=== PATIENT | female | born 1965 | race Caucasian/White ===

== ENCOUNTER 2022-12-18 07:50 | Outpatient (CLI) | payer OTHER, SELFPAY ==
--- OUTSIDE RECORDS SUMMARY | 2022-12-18 07:54 | XMS_ITS | Patient Health Record ---
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 Role Phone Dayne Reynoso Unavailable [phone] Aga Granger Unavailable [phone] Ziggy Andresey Unavailable [phone] Mila Cao Unavailable [phone] Dayne Marin Unavailable [phone] Alyson Cage Unavailable [phone] CarlosBamis Unavailable [phone] Keaton Mari Unavailable Unavailable Rajiv Bob Unavailable [phone] Nicolasa Mckenna Unavailable [phone] PROBLEMS Type Condition ICD9-CM Code [id number] Code Onset Dates Condition Status W/U Status Risk SNOMED Code Notes Problem Unspecified menopausal and perimenopausa l disorder N95.9 confirmed 741078103 Problem Climacteric N95.1 confirmed 31588246 0 Problem Chronic fatigue R53.82 confirmed 64734815 Problem Mixed urge and stress incontinence N39.46 confirmed 622262203 Problem Chronic vaginitis N76.1 confirmed 09076823 Problem Hypothyroid E03.9 confirmed 06128724 Problem Urinary incontinence, unspecified type R32 confirmed 656520737 Problem Menopausal and female climacteric states N95.1 confirmed 762686611 Problem Encounter for gynecological examination (general) (routine) without abnormal findings Z01.419 confirmed [id number] 37615 Problem Adrenal gland dysfunction E27.9 confirmed 27362584 Problem Female climacteric N95.1 confirmed 234738431 Problem Female climacteric state N95.1 confirmed 055996271 Problem Subclinical hypothyroidis m E03.8 confirmed 55237429 ALLERGIES Allergen (clinical drug ingredient) Drug/Non Drug Allergy documented on EMR Reaction Allergy Type Onset Date Status Metoprolol Succinate Unknown Drug Allergy Active Latex Latex rash Non Drug Allergy Act abel ENCOUNTERS from 1965 to 2022-12-18 Encounter Location Date Provider Diagnosis [facility] [address] [place], [place] [id number] Nov, Dayne Reynoso [facility] [address] [facility] [facility] [place] [address] October, Dayne Reynoso Menopausal and female climacteric states N95.[address] [place] [address] Sep, Dayne Reynoso Subclinical hypothyroidism E03.8 and Thyroid dysfunction E07.9 [facility] [address] [place], [place] [id number] Aug, Dayne Reynoso Menopausal and female climacteric states N95.1 ; Thyroid dysfunction E07.9 and Subclinical hypothyroidism E03.8 [facility] [address] [place] [address] 16 Aug, 2022 Dayne Reynoso Routine gynecological examination Z01.419 and Menopausal and female climacteric states N95.1 [facility] [address] [place] [address] Aug, Dayne Reynoso Menopausal and female climacteric states N95.1 [facility] [address] [place] [address] 03 Aug, 2022 Dayne Reynoso Screening mammogram for breast cancer Z12.31 [facility] [address] [place] [address] 12 May, 2022 Dayne Reynoso Menopausal and female climacteric states N95.1 ; Hair loss L65.9 ; Poor sleep Z72.820 and Thyroid dysfunction E07.9 [facility] [address] [place] [address] May, Dayne Reynoso Menopausal and female climacteric states N95.1 [facility] [address] [place] [address] Apr, Dayne Reynoso Subclinical hypothyroidism E03.[address] [address] 13 Feb, 2022 Dayne Reynoso Menopausal and female climacteric states N95.1 and Dysfunction of thyroid E07.9 [facility] [address] [place] [address] Feb, Dayne Reynoso Thyroid disorder screen Z13.29 ; Disorder of thyroid E07.9 and Menopausal and female climacteric states N95.1 [facility] [address] [place], [place] [phone] Jan, Dayne Reynoso [facility] [address] [place] [address] Jan, Dayne Reynoso Thyroid disorder screen Z13.29 and Dysfunction of thyroid E07.[address] [address] Dec, Dayne Reynoso Unspecified menopausal and perimenopausal disorder N95.9 ; Climacteric N95.1 and Subclinical hypothyroidism E03.8 [facility] [address] [place] [address] Nov, Dayne Reynoso Menopausal and female climacteric states N95.1 ; Thyroid disorder screen Z13.29 and Encounter for medication review Z79.[address] [address] Nov, Dayne Reynoso [address] [address] Nov, Dayne Reynoso [facility] [address] [place] [phone] October, Dayne Reynoso [facility] [address] [place] [address] October, Dayne Reynoso Thyroid dysfunction E07.9 and Thyroid disorder screen Z13.29 [facility] [address] [place] [phone] Sep, Dayne Bushaw [facility] [address] [place] [address] Sep, Dayne Reynoso Disorder of thyroid, unspecified E07.9 [facility] [address] [place] [address] Sep, Dayne Reynoso Menopausal and female climacteric states N95.1 ; Hyperpigmentation L81.9 ; Chronic fatigue R53.82 and Subclinical hypothyroidism E03.8 [facility] [address] [place] [address] Aug, Dayne Edgardo Current use of estrogen therapy Z79.899 and Female climacteric state N95.1 [address] [place] [address] Jul, Dayne Reynoso [facility] [address] [place] [address] Jun, Dayne Reynoso Routine gynecological examination Z01.419 and Menopausal and female climacteric states N95.1 [facility] [address] [place] [address] Jun, Dayne Reynoso Climacteric N95.1 [facility] [address] [place] [address] 14 Mar, 2021 Dayne Reynoso Unspecified menopausal and perimenopausal disorder N95.9 and Climacteric N95.1 [facility] [address] [place] [address] Mar, Dayne Reynoso Female climacteric N95.1 [facility] [address] [facility] [address] [place] [address] Feb, Dayne Mrain [facility] [address] [place] [phone] Jan, Rajiv Bob [facility] [address] [place] [address] 15 Dec, 2020 Dayne Reynoso Menopausal and female climacteric states N95.1 and Female hirsutism L68.0 [facility] [address] [place] [address] Dec, Dayne Edgardo Menopausal and female climacteric states N95.1 and Medication management Z79.899 [address] [place] [id number] Dec, Dayne Reynoso [facility] [address] [place] [address] Sep, Dayne Haganjose Menopausal and female climacteric states N95.1 [facility] [address] [place] [address] Sep, Dayne Reynoso Climacteric N95.1 and Medication management Z79.899 [address] [place] [id number] Sep, Dayne Reynoso [facility] [address] [place] [address] Jun, Dayne Edgardo Menopausal and female climacteric states N95.1 ; Other fatigue R53.83 and Adrenal gland dysfunction E27.9 [facility] [address] [place] [address] May, Dayne Marin Climacteric N95.1 [address] [place] [phone] May, Dayne Marin [facility] [address] [place] [address] May, Dayne Marin Cervical discharge N89.8 [facility] [address] [place] [address] May, Dayne Marin Unspecified menopausal and perimenopausal disorder N95.9 and Chronic vaginitis N76.1 [facility] [address] [place] [address] Apr, Keaton Mari Unspecified menopausal and perimenopausal disorder N95.9 and Medication management Z79.899 [address] [facility] [address] [place] [address] Feb, Talisha Barros [address] [place] [address] Jan, Keaton Mari [facility] [address] [place] [address] Jan, Dayne Marin Medication management Z79.899 [address] [place] [phone] Jan, Dayne Marin Unspecified menopausal and perimenopausal disorder N95.9 [address] [place] [phone] Jan, Dayne Marin Unspecified menopausal and perimenopausal disorder N95.9 [place] [address] [place] [address] Jan, Keaton Mari Unspecified menopausal and perimenopausal disorder N95.9 [place] [address] [place] [address] Jan, Dayne Marin [facility] [address] [place] [address] Jan, Keaton Mari Climacteric N95.1 [place] [address] [place] [address] October, Keaton Mari Unspecified menopausal and perimenopausal disorder N95.9 [place] [address] [place] [address] October, Dayne Marin Climacteric N95.[address] [place] [address] October, Nicolasa Mckenna [address] [place] [address] Sep, Dayne Marin Chronic fatigue R53.82 [address] [place] [phone] Sep, Rajiv Bob Mixed urge and stress incontinence N39.46 ; Urinary frequency R35.0 ; Nocturia more than twice per night R35.1 and Feeling of incomplete bladder emptying R39.14 [facility] [address] [place] [phone] Sep, Dayne Marin [facility] [address] [place] [address] [place] [address] Jul, Talisha Barros [facility] [address] [place] [address] [place] [address] Jul, Dayne Marin Encounter for gynecological examination (general) (routine) without abnormal findings Z01.419 ; Chronic fatigue R53.82 ; Hair loss L65.9 ; Poor sleep Z72.820 and Urinary incontinence, unspecified type R32 [facility] [address] [place] [address] [place] [address] Jul, [place] [address] [place] [address] Jul, Dayne Marin Unspecified menopausal and perimenopausal disorder N95.9 [place] [address] [place] [address] Jul, Keaton Mari Climacteric N95.1 [place] [address] [place] [address] May, [place] [address] [place] [address] May, Talisha Barros Unspecified menopausal and perimenopausal disorder N95.9 [place] [address] [place] [address] Apr, Talisha Barros Climacteric N95.1 [place] [address] [place] [address] Mar, [place] [address] [place] [address] Jan, Dayne Marin Unspecified menopausal and perimenopausal disorder N95.9 [place] [address] [place] [address] Jan, Talisha Barros Unspecified menopausal and perimenopausal disorder N95.9 [place] [address] [place] [address] October, [place] [address] [place] [address] October, [place] [address] [place] [address] October, Talisha Papo Unspecified menopausal and perimenopausal disorder N95.9 [place] [address] [place] [address] Sep, Talisha Barros Unspecified menopausal and perimenopausal disorder N95.9 [place] [address] [place] [address] Jul, Talisha Barros Unspecified menopausal and perimenopausal disorder N95.9 [place] [address] [place] [address] Jul, Talisha Papo Unspecified menopausal and perimenopausal disorder N95.9 [place] [address] [place] [address] Jul, Talisha Barros [place] [address] [place] [address] May, Talisha Barros Unspecified menopausal and perimenopausal disorder N95.9 [place] [address] [place] [address] May, Talisha Barros Unspecified menopausal and perimenopausal disorder N95.9 [place] [address] [place] [address] Apr, Talisha Barros Climacteric N95.1 and Unspecified menopausal and perimenopausal disorder N95.9 [place] [address] [place] [address] Apr, Talisha Barros Climacteric N95.1 [place] [address] [place] [address] Mar, Talisha Barros [facility] [address] [facility] [address] [place] [address] Mar, Talisha Barros Climacteric N95.1 SOCIAL HISTORY Tobacco Use: Social History Observation Description Date Details (start date - stop date) Never Smoker Sex Assigned At : Social History Observation Description Sex Assigned At Unknown Alcohol Screen (Audit-C) Question Answer Notes Did you have a drink containing alcohol in the p ast year? No Points 0 Interpretation Negative Tobacco Use/Smoking Question Answer Notes Are you a never smoker REASON FOR REFERRAL No Information VITAL SIGNS from 1965 to 2022-12-18 Height 63 in Aug, Weight 178.8 lbs Aug, BMI 31.67 kg/m2 Aug, Blood pressure systolic 124 mm Hg Aug, Blood pressure diastolic 72 mm Hg Aug, MEDICATIONS Medication SIG (Take, Route, Frequency, Duration) Notes Start Date End Date Status Spironolactone 100 MG 2 tablets Orally Once a day for 90 days Dec, Active Vitamin D3 Maximum Strength +k2, liquid drops Active WORKFORCE ADVISOR Thyroid 60 MG 1 tablet on an empty stomach Orally Once a day for 90 days Sep, Active WORKFORCE ADVISOR Thyroid 15 MG 1 tablet on an empty stomach Orally Once a day for 90 days Sep, Active Flonase Allergy Relief 50 MCG/ACT 1 spray in each nostril Nasally Once a day for 30 day(s) 2 sprays daily Active Prometrium 200 MG 1 capsule Orally daily at bedtime for 90 days Not-Taking Ketorolac Tromethamine 10mg as needed Active Multivitamin MVT patch, changes every night Active Estrogen Pellets Act abel Rizatriptan Benzoate 5 MG 1 tablet Orally Once a day for 1 day(s) PRN Active Vitamin B12 Active Propranolol HCl Acti ve Loratadine 10 MG 1 tablet Orally Once a day for 30 day(s) Active Testosterone Pellets Active RESULTS from 1967 to 2022-12-18 Component Value Reference Range Notes ESTRADIOL Reviewed date:11/24/2022 07:48:40 Interpretation: Performing Lab:, CB, [facility] [facility], [place] GuardadoCemwWF[address] Maurilio Brand Notes/Report: ESTRADIOL 101 pg/mL FSH Reviewed date:11/24/2022 07:48:40 Interpretation: Performing Lab:, JACQUES, [facility] [address], [place] EcafLX[address] Maurilio Brand Notes/Report: FSH 4.0 mIU/mL TESTOSTERONE, TOTAL, LC/MS/M S Reviewed date:11/24/2022 07:48:40 Interpretation: Performing Lab:, Z3E, [facility]-[address] [address], [address], WddyfztzfdGI[address] Wilber Boyce MD Notes/Report: TESTOSTERONE, TOTAL, MS 197 ng/dL 2-45 ng/dL ESTRADIOL Reviewed date:09/02/2022 12:57:50 Interpretation: Performing Lab:, JACQUES, [facility] [address], [place] RbvwST[address] Maurilio Brand Notes/Report: ESTRADIOL 72 pg/mL FSH Reviewed date:09/02/2022 12:57:51 Interpretation: Performing Lab:, JACQUES, [facility] [address], [facility] CenterXvlcEL[address] Maurilio Brand Notes/Report: FSH 2.6 mIU/mL T4, FREE Reviewed date:09/02/2022 12:57:51 Interpretation: Performing Lab:, JACQUES, [facility] [address], [place] JnwbFZ[address] Maurilio Brand Notes/Report: T4, FREE 1.1 ng/dL 0.8-1.8 ng/dL TSH Reviewed date:09/02/2022 12:57:51 Interpretation: Performing Lab:, JACQUES, [facility] [address], [place] NtndHL[address] Maurilio Brand Notes/Report: TSH 0.38 mIU/L T3, FREE Reviewed date:09/02/2022 12:57:51 Interpretation: Performing Lab:, JACQUES, [facility] [address], [place] EvukFA[address] Maurilio Brand Notes/Report: T3, FREE 3.5 pg/mL 2.3-4.2 pg/mL TESTOSTERONE, TOTAL, LC/MS/M S Reviewed date:09/02/2022 12:57:51 Interpretation: Performing Lab:, Z3E, [facility]-[address] [place] [address] [address], [address], EkjggrgqhzNT[address] Wilber Boyce MD Notes/Report: TESTOSTERONE, TOTAL, MS 112 ng/dL 2-45 ng/dL ESTRADIOL Reviewed date:05/28/2022 08:57:23 Interpretation: Performing Lab:, JACQUES, [facility] [address], [place] GuardadoYgncZV[address] Maurilio Brand M.D. Notes/Report: ESTRADIOL 84 pg/mL FSH Reviewed date:05/28/2022 08:57:24 Interpretation: Performing Lab:, Justino HANNA [facility] [address], [place] GuardadoAuveGB[address] Maurilio Brand M.D. Notes/Report: FSH 4.3 mIU/mL TESTOSTERONE, TOTAL, LC/MS/M S Reviewed date:05/28/2022 08:57:24 Interpretation: Performing Lab:, Z3E, [facility]-UerXokpxs[address] [address], [address], QnvkdsaoggID[address] Wilber Boyce MD Notes/Report: TESTOSTERONE, TOTAL, MS 104 ng/dL 2-45 ng/dL ESTRADIOL Reviewed date:03/01/2022 16:32:08 Interpretation: Performing Lab:, JACQUES [facility] [address], [place] GuardadoEwiaER[address] Maurilio Brand M.D. Notes/Report: ESTRADIOL 143 pg/mL FSH Reviewed date:03/01/2022 16:32:09 Interpretation: Performing Lab:, JACQUES [facility] [address], [place] LakhaniKfdaVA[address] Maurilio Brand M.D. Notes/Report: FSH 1.1 mIU/mL T4, FREE Reviewed date:03/01/2022 16:32:09 Interpretation: Performing Lab:, JACQUES, [facility] [address], [place] LakhaniUougFA[address] Maurilio Brand M.D. Notes/Report: T4, FREE 1.2 ng/dL 0.8-1.8 ng/dL TSH Reviewed date:03/01/2022 16:32:09 Interpretation: Performing Lab:, JACQUES, [facility] [address], [facility] CenterRwngFB[address] Maurilio Brand M.D. Notes/Report: TSH 0.78 mIU/L T3, FREE Reviewed date:03/01/2022 16:32:09 Interpretation: Performing Lab:, JACQUES VidB[facility]-[place] [address], [facility] SystemKwvlEN[address] Maurilio Brand M.D. Notes/Report: T3, FREE 3.1 pg/mL 2.3-4.2 pg/mL TESTOSTERONE, TOTAL, LC/MS/M S Reviewed date:03/01/2022 16:32:09 Interpretation: Performing Lab:, Z3Milton, [facility]-X[address]Soxlqx[address] [place] [address], [address], CxqvtcgkjxWN[address] Wilber Boyce MD Notes/Report: TESTOSTERONE, TOTAL, MS 86 ng/dL 2-45 ng/dL T4, FREE Reviewed date:02/11/2022 16:30:47 Interpretation: Performing Lab:, JACQUES [facility] [address], [place] WefzRR[address] Maurilio Brand M.D. Notes/Report: T4, FREE 1.2 ng/dL 0.8-1.8 ng/dL TSH Reviewed date:02/11/2022 16:30:47 Interpretation: Performing Lab:, JACQUES [facility]-[place] [address], [place] LakhaniXowhFT[address] Maurilio Brand M.D. Notes/Report: TSH 1.18 mIU/L T3, FREE Reviewed date:02/11/2022 16:30:48 Interpretation: Performing Lab:, JACQUES [facility] [address], [place] MiqzKP[address] Maurilio Brand M.D. Notes/Report: T3, FREE 4.6 pg/mL 2.3-4.2 pg/mL IRON, TIBC AND FERRITIN PANE L Reviewed date:12/21/2021 19:41:47 Interpretation: Performing Lab:, JACQUES [facility] [address], [place] IzjxJS[address]Karely Brand M.D. Notes/Report: % SATURATION 36 % (calc) 16-45 % (calc) FERRITIN 77 ng/mL 16-232 ng/mL IRON BINDING CAPACITY 306 mcg/dL (calc) 250-450 mcg/dL (calc) IRON, TOTAL 110 mcg/dL 45-160 mcg/dL POTASSIUM Reviewed date:12/21/2021 19:41:47 Interpretation: Performing Lab:, Justino HANNA Geodruid-[address], [place] JonQdxrDH[address]Moy Brand M.D. Notes/Report: POTASSIUM 5.0 mmol/L 3.5-5.3 mmol/L ESTRADIOL Reviewed date:12/21/2021 19:41:47 Interpretation: Performing Lab:, Justino HANNA [address], [place] Brand M.D. Notes/Report: ESTRADIOL 102 pg/mL FSH Reviewed date:12/21/2021 19:41:47 Interpretation: Performing Lab:, JACQUES VidBid-[address], [place] JonOlnmSI[address]Moy Brand M.D. Notes/Report: FSH 2.6 mIU/mL T4, FREE Reviewed date:12/21/2021 19:43:39 Interpretation: Performing Lab:, JACQUES VidBidShama [address], [place] Brand M.D. Notes/Report: T4, FREE 1.1 ng/dL 0.8-1.8 ng/dL TSH Reviewed date:12/21/2021 19:43:39 Interpretation: Performing Lab:, JACQUES V[facility]-[address], [place] GuardadoJcpsZM[address]Moy Brand M.D. Notes/Report: TSH 2.64 mIU/L T3, FREE Reviewed date:12/21/2021 19:43:39 Interpretation: Performing Lab:, JACQUES Vid[facility]id-[address], [place] GuardadoZuyuHB[address]Moy Brand M.D. Notes/Report: T3, FREE 2.9 pg/mL 2.3-4.2 pg/mL TESTOSTERONE, TOTAL, LC/MS/M S Reviewed date:12/27/2021 13:55:05 Interpretation: Performing Lab:, Z3E, [facility]-DnnGtwwjk[address] [place] [address], [address], OvkowupcvjMZ[address] Wilber Boyce MD Notes/Report: TESTOSTERONE, TOTAL, MS 86 ng/dL 2-45 ng/dL T4, FREE Reviewed date:11/09/2021 15:42:19 Interpretation: Performing Lab:, JACQUES, [facility] [address], [place] LakhaniNwjdER[address] Maurilio Brand M.D. Notes/Report: T4, FREE 1.3 ng/dL 0.8-1.8 ng/dL TSH Reviewed date:11/09/2021 15:42:19 Interpretation: Performing Lab:, JACQUES VidBid-[address], [place] GuardadoLngfRI[address] Maurilio Brand M.D. Notes/Report: TSH 1.86 mIU/L T3, FREE Reviewed date:11/09/2021 15:42:19 Interpretation: Performing Lab:, JACQUES [facility] [address], [place] GuardadoRuisQI[address] Maurilio Brand M.D. Notes/Report: T3, FREE 3.1 pg/mL 2.3-4.2 pg/mL T3, FREE Reviewed date:09/28/2021 08:44:40 Interpretation: Performing Lab:, JACQUES V[facility]id-[address], [place] GuardadoUkznZH[address] Maurilio Brand M.D. Notes/Report: T3, FREE 2.5 pg/mL 2.3-4.2 pg/mL POTASSIUM Reviewed date:09/25/2021 08:05:17 Interpretation: Performing Lab:, JACQUES [facility]-[address], [place] GuardadoBpjyVX[address] Maurilio Brand M.D. Notes/Report: POTASSIUM 4.5 mmol/L 3.5-5.3 mmol/L ESTRADIOL Reviewed date:09/25/2021 08:05:17 Interpretation: Performing Lab:, JACQUES [facility]-[place] [address], [facility] SystemEtmfKH[address] Maurilio Brand M.D. Notes/Report: ESTRADIOL 143 pg/mL FSH Reviewed date:09/25/2021 08:05:17 Interpretation: Performing Lab:, JACQUES VidBid-[address], [place] VraiVF[address] Maurilio Brand M.D. Notes/Report: FSH 8.5 mIU/mL TESTOSTERONE, TOTAL, LC/MS/M S Reviewed date:09/25/2021 08:05:17 Interpretation: Performing Lab:, Z3E, [facility]-UhxGlywzx[address] [place] [address], [address], DnmfjhydloPQ[address] Wilber Boyce MD Notes/Report: TESTOSTERONE, TOTAL, MS 134 ng/dL 2-45 ng/dL ESTRADIOL Reviewed date:07/02/2021 09:11:14 Interpretation: Performing Lab:, JACQUES VidBidJose [address], [place] GuardadoGsggJF[address] Maurilio Brand M.D. Notes/Report: ESTRADIOL 126 pg/mL FSH Reviewed date:07/02/2021 09:11:14 Interpretation: Performing Lab:, Justino HANNA Geodruid-[address], [place] GuardadoEpjjOZ[address] Maurilio Brand M.D. Notes/Report: FSH 2.7 mIU/mL TESTOSTERONE, TOTAL, LC/MS/M S Reviewed date:07/02/2021 09:11:14 Interpretation: Performing Lab:, Jonathan3Milton Stupeflix-[address]jtMn[address] [place] [address], [address], JmxubhqlfqCL[address] Wilber Boyce MD Notes/Report: TESTOSTERONE, TOTAL, MS 82 ng/dL 2-45 ng/dL POTASSIUM Reviewed date:04/02/2021 14:09:55 Interpretation: Performing Lab:, JACQUES [facility]-[address], [place] LakhaniWcsvZP[address] Maurilio Brand M.D. Notes/Report: POTASSIUM 4.7 mmol/L 3.5-5.3 mmol/L ESTRADIOL Reviewed date:04/02/2021 14:09:55 Interpretation: Performing Lab:, CB, [facility]-[address], [facility] SystemJwvrFB[address] Maurilio Brand M.D. Notes/Report: ESTRADIOL 89 pg/mL FSH Reviewed date:04/02/2021 14:09:55 Interpretation: Performing Lab:, JACQUES VidBid-Adar IT [address], [facility] SystemVuslTW[address] Maurilio Brand M.D. Notes/Report: FSH 2.8 mIU/mL TESTOSTERONE, TOTAL, LC/MS/M S Reviewed date:04/02/2021 14:09:55 Interpretation: Performing Lab:, Z3E, [facility]-GxiU[address] [place] [address], [address], LhjgorqzwwJN[address] Wilber Boyce Notes/Report: TESTOSTERONE, TOTAL, MS 64 ng/dL 2-45 ng/dL POTASSIUM Reviewed date:01/01/2021 10:24:52 Interpretation: Performing Lab:, JACQUES VidBidJose [address], [place] UsyiIU[address] Maurilio Brand M.D. Notes/Report: POTASSIUM 4.6 mmol/L 3.5-5.3 mmol/L ESTRADIOL Reviewed date:01/01/2021 10:24:52 Interpretation: Performing Lab:, Justino HANNA GeodruidJose [address], [place] FvraBJ[address] Maurilio Brand M.D. Notes/Report: ESTRADIOL 113 pg/mL FSH Reviewed date:01/01/2021 10:24:52 Interpretation: Performing Lab:, JACQUES VidBidAdar IT [address], [facility] SystemIkquRF[address] Maurilio Brand M.D. Notes/Report: FSH 8.3 mIU/mL TESTOSTERONE, TOTAL, LC/MS/M S Reviewed date:01/01/2021 10:24:52 Interpretation: Performing Lab:, Z3E, [facility]-NfxKmtzwp1051 [facility] [address], [address], EakzwiifobTN[address] Wilber Boyce Notes/Report: TESTOSTERONE, TOTAL, MS 134 ng/dL 2-45 ng/dL POTASSIUM Reviewed date:10/16/2020 08:26:52 Interpretation: Performing Lab:, JACQUES AdelaVoice [address], [facility] SystemNyapHF[address] Maurilio Brand M.D. Notes/Report: POTASSIUM 4.3 mmol/L 3.5-5.3 mmol/L ESTRADIOL Reviewed date:10/16/2020 08:26:52 Interpretation: Performing Lab:, JACQUES, [facility] [address], [place] MhtkAE[address] Maurilio Brand M.D. Notes/Report: ESTRADIOL 93 pg/mL FSH Reviewed date:10/16/2020 08:26:52 Interpretation: Performing Lab:, JACQUES VidBid-[place] [address], [place] XijwXH[address] Maurilio Brand M.D. Notes/Report: FSH 14.8 mIU/mL TESTOSTERONE, TOTAL, LC/MS/M S Reviewed date:10/16/2020 08:26:52 Interpretation: Performing Lab:, Z3E, [facility] Online[facility]-RivTrxkqt[address] [address], [address], JqktugkuanWY[address] Wilber Boyce Notes/Report: TESTOSTERONE, TOTAL, MS 76 ng/dL 2-45 ng/dL ESTRADIOL Reviewed date:06/28/2020 12:01:18 Interpretation: Performing Lab:, JACQUES VidBid-Adar IT [address], [place] WfrzUT[address] Maurilio Brand M.D. Notes/Report: ESTRADIOL 110 pg/mL FSH Reviewed date:06/28/2020 12:01:18 Interpretation: Performing Lab:, JACQUES VidBid-Adar IT [address], [facility] SystemQgcdXY[address] Maurilio Brand M.D. Notes/Report: FSH 10.9 mIU/mL TESTOSTERONE, TOTAL, LC/MS/M S Reviewed date:06/28/2020 12:01:18 Interpretation: Performing Lab:, Z3E, [facility]-JloGvmilc[address] [place] [address], [address], BpzjojszgqHW[address] Wilber Boyce Notes/Report: TESTOSTERONE, TOTAL, MS 200 ng/dL 2-45 ng/dL BV/VAGINITIS PANEL DNA PROBE Reviewed date:05/30/2020 10:27:27 Interpretation:Normal Performing Lab:, [place], [facility]-Ikrxzuzebw[address] [facility] [address], OcstuimpguBE[address] Maurilio Brand Notes/Report: MARIA ANTONIA: NOT DETECTED NOT DETECTED GARDNERELLA: NOT DETECTED NOT DETECTED TRICHOMONAS: NOT DETECTED NOT DETECTED POTASSIUM Reviewed date:05/23/2020 09:09:55 Interpretation:Normal Performing Lab:, CB, [facility] [address], [place] GuardadoRxolVK[address] Maurilio Brand M.D. Notes/Report: POTASSIUM 4.5 mmol/L 3.5-5.3 mmol/L ESTRADIOL Reviewed date:05/23/2020 09:09:55 Interpretation: Performing Lab:, JACQUES, [facility] [address], [place] GuardadoMkyvRQ[address]Karely Brand M.D. Notes/Report: ESTRADIOL 102 pg/mL FSH Reviewed date:05/23/2020 09:09:55 Interpretation: Performing Lab:, JACQUES, [facility] [address], [place] GuardadoPrfkBA[address] Maurilio Brand M.D. Notes/Report: FSH 13.4 mIU/mL TESTOSTERONE, TOTAL, LC/MS/M S Reviewed date:05/23/2020 09:09:55 Interpretation: Performing Lab:, Tk, [facility]-FtjVuuayw[address] [place] [address], [address], WuxisnlmruHV[address] Wilber Boyce Notes/Report: TESTOSTERONE, TOTAL, MS 59 ng/dL 2-45 ng/dL POTASSIUM Reviewed date:02/22/2020 09:36:22 Interpretation:Normal Performing Lab:, CB, [facility] [address], [place] GuardadoBsmgZD[address] Maurilio Brand M.D. Notes/Report: POTASSIUM 4.7 mmol/L 3.5-5.3 mmol/L ESTRADIOL Reviewed date:02/02/2020 15:00:27 Interpretation: Performing Lab:, JACQUES, [facility] [address], [place] GuardadoWrknAK[address] Maurilio Brand M.D. Notes/Report: ESTRADIOL 114 pg/mL FSH Reviewed date:02/02/2020 15:00:27 Interpretation: Performing Lab:, CB, [facility] [address], [place] OfzpOL[address] Maurilio Brand M.D. Notes/Report: FSH 15.9 mIU/mL TESTOSTERONE, TOTAL, LC/MS/M S Reviewed date:02/02/2020 15:00:27 Interpretation: Performing Lab:CRUZITO [facility] [address]rerkb[address] , SpliwfazEQ[address] Varinder Tai M.D., Ph.D Notes/Report: TESTOSTERONE, TOTAL, MS 137 ng/dL 2-45 ng/dL ESTRADIOL Reviewed date:10/29/2019 14:31:14 Interpretation: Performing Lab:, Just[facility] HANNA-Jose [address], [place] GuardadoPzupWJ[address] Maurilio Brand M.D. Notes/Report: ESTRADIOL 91 pg/mL FSH Reviewed date:10/29/2019 14:31:14 Interpretation: Performing Lab:, Just[facility] HANNA [address], [place] GuardadoXdgoAN[address] Maurilio Brand M.D. Notes/Report: FSH 10.4 mIU/mL TESTOSTERONE, TOTAL, LC/MS/M S Reviewed date:11/09/2019 12:49:35 Interpretation: Performing Lab:, Justino EAST[address] , JtewhdyvXK[address] Varinder Tai M.D., Ph.D Notes/Report: TESTOSTERONE, TOTAL, MS 117 ng/dL 2-45 ng/dL Urinalysis, Routine - IH Reviewed date:10/06/2019 13:02:36 Interpretation: Performing Lab:,Lab: [facility], [facility], [employer]: 01 Notes/Report: Bilirubin neg Negative Blood neg Negative Glucose neg Negative Ketone neg Negative Leukocytes neg Negative Nitrite neg Negative pH 8.0 5.0 - 7.0 Protein neg Negative Specific [place] 1.015 1.000 - 1.030 Urobilinogen 0.2 mg/dL 0.2-1 mg/dL CBC (INCLUDES DIFF/PLT) Reviewed date:08/24/2019 17:02:18 Interpretation: Performing Lab:, Justino HANNAe[address], [place] LakhaniAaqvIO[address] Maurilio Brand M.D. Notes/Report: ABSOLUTE BASOPHILS 83 cells/uL 0-200 cells/uL ABSOLUTE EOSINOPHILS 158 cells/uL 15-500 cells/uL ABSOLUTE LYMPHOCYTES 2333 cells/uL 850-3900 cells/uL ABSOLUTE MONOCYTES 630 cells/uL 200-950 cells/uL ABSOLUTE NEUTROPHILS 4298 cells/uL 4499-6894 cells/uL BASOPHILS 1.1 % EOSINOPHILS 2.1 % HEMATOCRIT 41.6 % 35.0-45.0 % HEMOGLOBIN 14.1 g/dL 11.7-15.5 g/dL LYMPHOCYTES 31.1 % MCH 30.8 pg 27.0-33.0 pg MCHC 33.9 g/dL 32.0-36.0 g/dL MCV 90.8 fL 80.0-100.0 fL MONOCYTES 8.4 % MPV 9.7 fL 7.5-12.5 fL NEUTROPHILS 57.3 % PLATELET COUNT 416 Thousand/uL 140-400 Thousand/uL RDW 11.5 % 11.0-15.0 % RED BLOOD CELL COUNT 4.58 Million/uL 3.80-5.10 Million /uL WHITE BLOOD CELL COUNT 7.5 Thousand/uL 3.8-10.8 Th[address] nd/uL HEMOGLOBIN A1c Reviewed date:08/24/2019 17:02:18 Interpretation: Performing Lab:, JACQUES VidBid-Adar IT [address] [facility], [facility] SystemDgnmVH[address] Maurilio Brand M.D. Notes/Report: HEMOGLOBIN A1c 4.9 % of total Hgb <5.7 % of total Hgb CORTISOL, TOTAL Reviewed date:08/24/2019 17:02:18 Interpretation: Performing Lab:, JACQUES VidBid-Adar IT [address], [facility] SystemSrrsNZ[address] Maurilio Brand M.D. Notes/Report: CORTISOL, TOTAL 5.8 mcg/dL ESTRADIOL Reviewed date:08/03/2019 14:46:50 Interpretation: Performing Lab:, JACQUES AdelaVoice [address], [facility] SystemMaekUZ[address] Maurilio Brand M.D. Notes/Report: ESTRADIOL 78 pg/mL FSH Reviewed date:08/03/2019 14:46:50 Interpretation: Performing Lab:, JACQUES VidBid-Adar IT [address], [place] PgwgJZ[address] Maurilio Brand M.D. Notes/Report: FSH 11.1 mIU/mL TESTOSTERONE, TOTAL, LC/MS/M S Reviewed date:08/03/2019 14:46:50 Interpretation: Performing Lab:, Just[facility] EAST[address] RdMercy HospitalJhsdepkwTA[address] Varinder Tai M.D., Ph.D Notes/Report: TESTOSTERONE, TOTAL, MS 101 ng/dL 2-45 ng/dL ESTRADIOL Reviewed date:05/22/2019 11:15:16 Interpretation: Performing Lab:, Justino HANNA-Jose [address], [place] GuardadoUartTF[address] Maurilio Brand M.D. Notes/Report: ESTRADIOL 83 pg/mL FSH Reviewed date:05/22/2019 11:15:16 Interpretation: Performing Lab:, Just[facility] HANNA-Jose [address], [place] GuardadoAathZA[address] Maurilio Brand M.D. Notes/Report: FSH 24.7 mIU/mL TESTOSTERONE, TOTAL, LC/MS/M S Reviewed date:05/22/2019 11:15:16 Interpretation: Performing Lab:, Just[facility] EAST[address] RdMercy HospitalPquabehrQD[address] Vairnder Tai M.D., Ph.D Notes/Report: TESTOSTERONE, TOTAL, MS 67 ng/dL 2-45 ng/dL ESTRADIOL Reviewed date:01/25/2019 07:30:53 Interpretation: Performing Lab:, Justino HANNA[address], [place] GuardadoUrldFV[address] Maurilio Brand M.D. Notes/Report: ESTRADIOL 85 pg/mL FSH Reviewed date:01/25/2019 07:30:53 Interpretation: Performing Lab:, Justino HANNA [address], [place] GuardadoTlrlNB[address] Maurilio Brand M.D. Notes/Report: FSH 10.0 mIU/mL TESTOSTERONE, TOTAL, LC/MS/M S Reviewed date:01/25/2019 07:30:53 Interpretation: Performing Lab:, Justino EAST Nfbktbjf[address] RdMercy HospitalBxmvnmfyZT[address] Varinder Tai M.D., Ph.D Notes/Report: TESTOSTERONE, TOTAL, MS 126 ng/dL 2-45 ng/dL POTASSIUM Reviewed date:10/26/2018 16:26:42 Interpretation: Performing Lab:, Justino HANNA-Jose [address], [place] GuardadoHlboSO[address] Maurilio Brand M.D. Notes/Report: POTASSIUM 4.8 mmol/L 3.5-5.3 mmol/L ESTRADIOL Reviewed date:10/26/2018 16:26:42 Interpretation: Performing Lab:, Justino HANNAe[address], [place] GuardadoNnskBV[address] Maurilio Brand M.D. Notes/Report: ESTRADIOL 35 pg/mL FSH Reviewed date:10/26/2018 16:26:42 Interpretation: Performing Lab:, Justino HANNA [address], [place] GuardadoGwfoZR[address]Karely Brand M.D. Notes/Report: FSH 13.5 mIU/mL TESTOSTERONE, TOTAL, LC/MS/M S Reviewed date:10/26/2018 16:26:42 Interpretation: Performing Lab:, Just[facility] EAST[address] RdMercy HospitalEsisexdzTX[address] Varinder aTi M.D., Ph.D Notes/Report: TESTOSTERONE, TOTAL, MS 94 ng/dL 2-45 ng/dL ESTRADIOL Reviewed date:08/18/2018 17:02:34 Interpretation: Performing Lab:, Justino HANNA[address], [place] GuardadoIfrbCX[address] Maurilio Brand M.D. Notes/Report: ESTRADIOL 82 pg/mL FSH Reviewed date:08/18/2018 17:02:34 Interpretation: Performing Lab:, Justino HANNA[address], [place] GuardadoMussXS[address] Maurilio Brand M.D. Notes/Report: FSH 32.4 mIU/mL TESTOSTERONE, TOTAL, LC/MS/M S Reviewed date:08/18/2018 17:02:34 Interpretation: Performing Lab:, [address], OaimpkezUH[address] Vairnder Tai M.D., Ph.D Notes/Report: TESTOSTERONE, TOTAL, MS 161 ng/dL 2-45 ng/dL ESTRADIOL Reviewed date:06/08/2018 12:54:11 Interpretation: Performing Lab:, JACQUES, [facility] [address], [place] TgywWX[address] Maurilio Brand M.D. Notes/Report: ESTRADIOL 119 pg/mL FSH Reviewed date:06/08/2018 12:54:11 Interpretation: Performing Lab:, JACQUES, [facility] [address], [place] JuicNZ[address] Maurilio Brand M.D. Notes/Report: FSH 12.4 mIU/mL TESTOSTERONE, TOTAL, LC/MS/M S Reviewed date:06/08/2018 12:54:11 Interpretation: Performing Lab:, Just[facility] EAST [address], QpcdvqucTG[address] Varinder Tai M.D., Ph.D Notes/Report: TESTOSTERONE, TOTAL, MS 87 ng/dL 2-45 ng/dL ESTRADIOL Reviewed date:05/03/2018 12:01:33 Interpretation: Performing Lab:, Just[facility] H[facility] [address], [place] BroussardZhhvIR[address] Maurilio Brand M.D. Notes/Report: ESTRADIOL 53 pg/mL DHEA SULFATE Reviewed date:05/03/2018 12:01:33 Interpretation: Performing Lab:, [facility] H[facility] [address], [place] LakhaniMbtpTY[address] Maurilio Brand M.D. Notes/Report: DHEA SULFATE 207 mcg/dL 19-231 mcg/dL VITAMIN B12 Reviewed date:05/03/2018 12:01:33 Interpretation: Performing Lab:, [facility] H[facility] [address], [place] YafsKJ[address] Maurilio Brand M.D. Notes/Report: VITAMIN B12 985 pg/mL 200-1100 pg/mL FSH Reviewed date:05/03/2018 12:01:33 Interpretation: Performing Lab:, Just[facility] H[facility] [address], [place] XcmxMR[address] Maurilio Brand M.D. Notes/Report: FSH 57.3 mIU/mL LH Reviewed date:05/03/2018 12:01:33 Interpretation: Performing Lab:, Just[facility] HAN[facility] [address], [place] GuardadoItbyJV[address] Maurilio Brand M.D. Notes/Report: LH 50.3 mIU/mL PROLACTIN Reviewed date:05/03/2018 12:01:33 Interpretation: Performing Lab:, JACQUES, [facility] [address], [place] GuardadoKzruUX[address] Maurilio Brand M.D. Notes/Report: PROLACTIN 4.2 ng/mL CORTISOL, TOTAL Reviewed date:05/03/2018 12:01:33 Interpretation: Performing Lab:, Just[facility] HANNA-Jose [address], [place] GuardadoYkugZX[address] Maurilio Brand M.D. Notes/Report: CORTISOL, TOTAL 2.2 mcg/dL TSH Reviewed date:05/03/2018 12:01:33 Interpretation: Performing Lab:, Just[facility] HANNA-Jose [address], [place] GuardadoQryzSJ[address] Maurilio Brand M.D. Notes/Report: TSH 1.78 mIU/L VITAMIN D,25-OH,TOTAL,IA Reviewed date:05/03/2018 12:01:33 Interpretation: Performing Lab:, Just[facility] HANNA-Jose [address], [place] GuardadoUgmqWZ[address]Karely Brand M.D. Notes/Report: VITAMIN D,25-OH,TOTAL,IA 79 ng/mL 30-100 ng/mL SEX HORMONE BINDING GLOBULIN Reviewed date:05/03/2018 12:01:33 Interpretation: Performing Lab:, Justino HANNA GeodruidShama [address], [place] BroussardNqntIW[address]Karely Brand M.D. Notes/Report: SEX HORMONE BINDING GLOBULIN 46 nmol/L 17-124 nmol/ L VITAMIN B6 Reviewed date:05/03/2018 12:01:33 Interpretation: Performing Lab:, Just[facility] EAST-[place] Ajtufer[address], XhmjqiifZB[address] Varinder Tai M.D., Ph.D Notes/Report: VITAMIN B6, PLASMA 19.8 ng/mL 2.1-21.7 ng/mL TESTOSTERONE, TOTAL, LC/MS/M S Reviewed date:05/03/2018 12:01:33 Interpretation: Performing Lab:, CRUZITO VidBid-[place]andez Jrvhbrup[address] , AbvihdxaXS[address] Varinder Tai M.D., Ph.D Notes/Report: TESTOSTERONE, TOTAL, MS 27 ng/dL 2-45 ng/dL TESTOSTERONE, FREE Reviewed date:05/03/2018 12:01:33 Interpretation: Performing Lab:, SLI, [facility]g Eldzqaet[address], RfaynjcmJU[address] Varinder Tai M.D., Ph.D Notes/Report: TESTOSTERONE, FREE 2.3 pg/mL 0.2-5.0 pg/mL REASON FOR VISIT No Information MEDICAL (GENERAL) HISTORY Type Description Date Medical History Migraines Medical History Celiac Medical History PCOS Medical History hydradenitis suppurativa Surgical History Gallbladder Removal 1997 Surgical History Right Wrist Surgery Surgical History Right Foot Surgery Surgical History Hysterectomy 2001 Surgical History nuerotransmit for migraines MENTAL STATUS No Information ASSESSMENTS Encounter Date Diagnosis Assessment Notes Treatment Notes Treatment Clinical Notes October, Menopausal and femal e climacteric states (ICD-10 - N95.1) Sep, Subclinical hypothyroidism (ICD-10 - E03.8) Sep, Thyroid dysfunction (ICD-10 - E07.9) Aug, Menopausal and femal e climacteric states (ICD-10 - N95.1) Aug, Thyroid dysfunction (ICD-10 - E07.9) Aug, Subclinical hypothyroidism (ICD-10 - E03.8) Aug, Routine gynecologica l examination (ICD-10 - Z01.419) Aug, Menopausal and femal e climacteric states (ICD-10 - N95.1) Aug, Other Exercise: encouraged regular daily exercise High calcium diet encouraged Breast awareness discussed, annual mammogram screening recommended starting at age 40. Up to date Pap/HPV: not further needed s/p hysterectomy for benign reason HM labs: does annually through [email or web address] insurance Follow up annually or PRN -HRT pellet inserted as documented above without complication -Post-insertion instructions reviewed. Printed handout with instructions given along with ice pack. Repeat ice to insertion site for 20 min. 3-5 times a day PRN for soreness at insertion site -Report any signs of infection or pellet expulsion -Repeat labs in 3 months (E2, FSH, total testosterone) with next insertion 1 week later -Follow up as needed before next insertion if any concerns Aug, Menopausal and femal e climacteric states (ICD-10 - N95.1) Aug, Screening mammogram for breast cancer (ICD-10 - Z12.31) May, Menopausal and femal e climacteric states (ICD-10 - N95.1) May, Hair loss (ICD-10 - L65.9) May, Poor sleep (ICD-10 - Z72.820) May, Thyroid dysfunction (ICD-10 - E07.9) Increase [place] thyroid dose to 75mg/day. Caution on side effects including palpitations, agitation, etc. that can occur and should be reported. TFT's with next labs in 3 months. Can check as early as 4 weeks if desired. May, Other -HRT pellet inserted as documented above without complication -Post-insertion instructions reviewed. Printed handout with instructions given along with ice pack. Repeat ice to insertion site for 20 min. 3-5 times a day PRN for soreness at insertion site -Report any signs of infection or pellet expulsion -Repeat labs in 3 months (E2, FSH, total testosterone) with next insertion 1 week later -Follow up as needed before next insertion if any concerns May, Menopausal and femal e climacteric states (ICD-10 - N95.1) Apr, Subclinical hypothyroidism (ICD-10 - E03.8) Feb, Dysfunction of thyro id (ICD-10 - E07.9) Feb, Menopausal and femal e climacteric states (ICD-10 - N95.1) Feb, Other -HRT pellet inserted as documented above without complication -Post-insertion instructions reviewed. Printed handout with instructions given along with ice pack. Repeat ice to insertion site for 20 min. 3-5 times a day PRN for soreness at insertion site -Report any signs of infection or pellet expulsion -Repeat labs in 3 months (E2, FSH, total testosterone) with next insertion 1 week later -Follow up as needed before next insertion if any concerns Feb, Thyroid disorder screen (ICD-10 - Z13.29) Feb, Disorder of thyroid (ICD-10 - E07.9) Feb, Menopausal and femal e climacteric states (ICD-10 - N95.1) Jan, Thyroid disorder screen (ICD-10 - Z13.29) Jan, Dysfunction of thyro id (ICD-10 - E07.9) Dec, Unspecified menopaus al and perimenopausal disorder (ICD-10 - N95.9) Dec, Climacteric (ICD-10 - N95.1) Dec, Subclinical hypothyroidism (ICD-10 - E03.8) Tolerating armour thyroid. Plan to increase dose to 60mg/day. Recheck TFT's in 6-8 weeks. Cautioned on side effects to report of increasing dose of therapy including palpitations, aggitation, and dizziness Dec, Other -HRT pellet inserted as documented above without complication -Post-insertion instructions reviewed. Printed handout with instructions given along with ice pack. Repeat ice to insertion site for 20 min. 3-5 times a day PRN for soreness at insertion site -Report any signs of infection or pellet expulsion -Repeat labs in 3 months (E2, FSH, total testosterone) with next insertion 1 week later -Follow up as needed before next insertion if any concerns Nov, Menopausal and femal e climacteric states (ICD-10 - N95.1) Nov, Thyroid disorder screen (ICD-10 - Z13.29) Nov, Encounter for medication review (ICD-10 - Z79.899) October, Thyroid disorder screen (ICD-10 - Z13.29) October, Thyroid dysfunction (ICD-10 - E07.9) Sep, Hyperpigmentation (ICD-10 - L81.9) Plan to discontinue progesterone since she has had a hysterectomy and is still struggling with sleep to see if her chest redness improves any. Then can consider lower dosing of estradiol if ongoing. Sep, Menopausal and femal e climacteric states (ICD-10 - N95.1) Sep, Disorder of thyroid, unspecified (ICD-10 - E07.9) Sep, Chronic fatigue (ICD-10 - R53.82) Vitamin D level in 07/25/21 was 58.9 last vit. B12 level in the 900's in 2018 TSH slowing increasing since 2018, labs reviewed on phone from outside provider Sep, Subclinical hypothyroidism (ICD-10 - E03.8) Free T3 lab today Desires [place] thyroid for management to help with fatigue and sleep difficulties. Plan to start 15mg PO daily, cautioned on common side effects to report with recheck of TFT's in 6 weeks to determine if dose can be increased and to see how she is feeling Sep, Other -HRT pellet inserted as documented above without complication -Post-insertion instructions reviewed. Printed handout with instructions given along with ice pack. Repeat ice to insertion site for 20 min. 3-5 times a day PRN for soreness at insertion site -Report any signs of infection or pellet expulsion -Repeat labs in 3 months (E2, FSH, total testosterone) with next insertion 1 week later -Follow up as needed before next insertion if any concerns Aug, Current use of estrogen therapy (ICD-10 - Z79.899) Aug, Female climacteric state (ICD-10 - N95.1) Jun, Routine gynecologica l examination (ICD-10 - Z01.419) -Continue with regular exercise and healthy diet including high calcium foods for bone health -No furhter Pap screen with history of hysterectomy for benign reasons -Breast awareness and annual mammograms recommended -Colonoscopy ordered through PCP -Bone density completed 2019, results on in chart, pt. believes no concerns -HM labs through PCP Jun, Menopausal and femal e climacteric states (ICD-10 - N95.1) Jun, Other -HRT pellet inserted as documented above without complication -Post-insertion instructions reviewed. Printed handout with instructions given along with ice pack. Repeat ice to insertion site for 20 min. 3-5 times a day PRN for soreness at insertion site -Report any signs of infection or pellet expulsion -Repeat labs in 3 months (E2, FSH, total testosterone, potassium) with next insertion 1 week later -Follow up as needed before next insertion if any concerns Jun, Climacteric (ICD-10 - N95.1) Mar, Climacteric (ICD-10 - N95.1) Mar, Unspecified menopaus al and perimenopausal disorder (ICD-10 - N95.9) Mar, Other -HRT pellet inserted as documented above without complication -Post-insertion instructions reviewed. Printed handout with instructions given along with ice pack. Repeat ice to insertion site for 20 min. 3-5 times a day PRN for soreness at insertion site -Report any signs of infection or pellet expulsion -Repeat labs in 3 months (E2, FSH, total testosterone) with next insertion 1 week later -Follow up as needed before next insertion if any concerns Mar, Female climacteric (ICD-10 - N95.1) Dec, Menopausal and femal e climacteric states (ICD-10 - N95.1) Dec, Female hirsutism (ICD-10 - L68.0) Dec, Other -HRT pellet inserted as documented above without complication -Post-insertion instructions reviewed. Printed handout with instructions given along with ice pack. Repeat ice to insertion site for 20 min. 3-5 times a day PRN for soreness at insertion site -Report any signs of infection or pellet expulsion -Restarted spironolactone for hirsutism and acne. Desires increase to 200mg/day. Rx sent. -Repeat labs in 3 months (E2, FSH, total testosterone, K+) with next insertion 1 week later -Follow up as needed before next insertion if any concerns Dec, Medication managemen t (ICD-10 - Z79.899) Dec, Menopausal and femal e climacteric states (ICD-10 - N95.1) Sep, Menopausal and femal e climacteric states (ICD-10 - N95.1) Sep, Other Hormone pellets inserted as documented above. Post care instructions reviewed, handout and ice pack given Has stopped spironolactone and plans to stay off therapy Continue with prometrium to help with sleep RTC in 3 months for labs (E2, FSH, total testosterone) and 1 week later for repeat insertion. Sep, Medication managemen t (ICD-10 - Z79.899) Sep, Climacteric (ICD-10 - N95.1) Jun, Menopausal and femal e climacteric states (ICD-10 - N95.1) Jun, Other fatigue (ICD-1 0 - R53.83) Jun, Adrenal gland dysfunction (ICD-10 - E27.9) Jun, Other -Hormone pellet booster inserted as documented above. Will consider repeat Adrenal Cortex Assessment at next visit especially if her symptoms have not improved after booster dose of pellets -Continue with prometrium daily and spironolactone to help with sleep difficulties and side effects of testosterone therapy -RTC in 4-5 months for labs (E2, FSH, total testosterone, postassium) and 1 week later for repeat insertion. May, Climacteric (ICD-10 - N95.1) May, Unspecified menopaus al and perimenopausal disorder (ICD-10 - N95.9) May, Chronic vaginitis (ICD-10 - N76.1) May, Cervical discharge (ICD-10 - N89.8) May, Other Next insert in 4 months If not feeling better in 4 weeks, call for labs (total test, FSH, estradiol, TSH, Free T3, Free T4) BD Affirm pending for chronic vaginitis Apr, Unspecified menopaus al and perimenopausal disorder (ICD-10 - N95.9) Apr, Medication managemen t (ICD-10 - Z79.899) Apr, Unspecified menopaus al and perimenopausal disorder (ICD-10 - N95.9) Apr, Medication managemen t (ICD-10 - Z79.899) 24 Jan, 2020 Medication managemen t (ICD-10 - Z79.899) Jan, Unspecified menopaus al and perimenopausal disorder (ICD-10 - N95.9) 17 Jan, 2020 Unspecified menopaus al and perimenopausal disorder (ICD-10 - N95.9) 13 Jan, 2020 Unspecified menopaus al and perimenopausal disorder (ICD-10 - N95.9) Hormone pellets inserted today per patient desires and medical recommendation. After care and follow up instructions were reviewed with patient in great detail. Patient states that all questions have been answered to her satisfaction. 13 Jan, 2020 Other Ice pack x20min , 5 times today Follow up: Jan, Climacteric (ICD-10 - N95.1) 14 Oct, 2019 Unspecified menopaus al and perimenopausal disorder (ICD-10 - N95.9) SottoPelle was inserted today per patient desires and medical recommendation. After care and follow up instructions were reviewed with patient in great detail. Patient states that all questions have been answered to her satisfaction. 14 Oct, 2019 Other Ice pack x20min , 5 times today Follow up: October, Climacteric (ICD-10 - N95.1) Sep, Chronic fatigue (ICD-10 - R53.82) Sep, Other Cortisol Stress REset, QID Contniue Sottopelle Attempt to get 8 hrs sleep daily Adrenal handouts mailed to pt, copy of test result A total of 13 minutes were spent in face to face video conferencing with the patient Visit start time: 11:08 Visit end time: 11:21 Sep, Other A total of minutes was spent in face to face video conferencing with the patient from Patient location: Provider location: [facility] home Visit completed with two way video using [employer] EMR telemedicine visit Sep, Mixed urge and stres s incontinence (ICD-10 - N39.46) Sep, Urinary frequency (ICD-10 - R35.0) Sep, Nocturia more than twice per night (ICD-10 - R35.1) Sep, Feeling of incomplet e bladder emptying (ICD-10 - R39.14) Sep, Other The patient was given a voiding collection hat along with a voiding diary. I taught the patient how to fill out the voiding diary and to complete for two 24 hour periods. Explained to the patient that she could discuss this further with Dr Gee at her telehealth visit tomorrow. Five minutes were spent with the patient explaining and answering questions regarding the voiding diary. The patient filled out the Urogynecology Patient Questionnaire. This was scanned to the patient chart and uploaded to patient docs under Urogynecology. We discussed the urodynamics procedure and explained that she should drink plenty of water today. Explained that she should follow up with any signs of worsening pain, fevers and/or malodorous urine. Increased urinary frequency and urgency could also be a sign of a urinary tract infection and she should notify us should this occur. Follow up with Dr Gee to discuss the results and to formulate a plan. Jul, Encounter for gynecological examination (general) (routine) without abnormal findings (ICD-10 - Z01.419) Jul, Chronic fatigue (ICD-10 - R53.82) Jul, Hair loss (ICD-10 - L65.9) Jul, Poor sleep (ICD-10 - Z72.820) Jul, Urinary incontinence , unspecified type (ICD-10 - R32) She has tried Kegels over the past 1 year with no change in urinary incontinence. [place] urodynamics and then bladder consult with UROGYN. Jul, Other Encouraged exer cise of moderate intensity, most days of the week Daily calcium intake of 1000mg with diet and/or supplements Had low serum cortisol here in Apr 2018; serum cortisol repeated today. Will also do Adrenocortex saliva test. Follow up in 6 weeks (going to [facility] for the month of August) Jul, Unspecified menopaus al and perimenopausal disorder (ICD-10 - N95.9) SottoPelle was inserted today per patient desires and medical recommendation. After care and follow up instructions were reviewed with patient in great detail. Patient states that all questions have been answered to her satisfaction. 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 After care and follow up instructions were reviewed with patient in great detail. Patient states that all questions have been answered to her satisfaction. 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 After care and follow up instructions were reviewed with patient in great detail. Patient states that all questions have been answered to her satisfaction. She c/o poor sleep and hot flashes. Her numbers look very good today. Hx hysterectomy so has not been rx'd or need progesterone for endometrial protection. However it can have some benefit for sleep and VM sx so will send in rx for her to try this interval. Also discussed mammo. PCP recommended q 2 years; we prefer annual >50 and on HRT. She will have mammo prior to next insert at [facility] and have report faxed to us. Jan, Other Ice pack x20min , 5 times today Jan, Unspecified menopaus al and perimenopausal disorder (ICD-10 - N95.9) October, Unspecified menopaus al and perimenopausal disorder (ICD-10 - N95.9) SottoPelle was inserted today per patient desires and medical recommendation. After care and follow up instructions were reviewed with patient in great detail. Patient states that all questions have been answered to her satisfaction. October, Other Ice pack x20min , 5 times today Sep, Unspecified menopaus al and perimenopausal disorder (ICD-10 - N95.9) Jul, Unspecified menopaus al and perimenopausal disorder (ICD-10 - N95.9) SottoPelle was inserted today per patient desires and medical recommendation. After care and follow up instructions were reviewed with patient in great detail. Patient states that all questions have been answered to her satisfaction. Jul, Other Ice pack x20min , 5 times today Jul, Unspecified menopaus al and perimenopausal disorder (ICD-10 - N95.9) May, Unspecified menopaus al and perimenopausal disorder (ICD-10 - N95.9) SottoPelle was inserted today per patient desires and medical recommendation. After care and follow up instructions were reviewed with patient in great detail. Patient states that all questions have been answered to her satisfaction. 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 After care and follow up instructions were reviewed with patient in great detail. Patient states that all questions have been answered to her satisfaction. 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 Patient was given a copy of the Sottopelle consent forms to take home and review. Discused potenial side effects of fluid retention, swelling, breast tenderness, nipple sensitivity, uterine spotting, mood swings and irritability, acne, hair loss and hair growth. Labs drawn. She will return for a visit to review results and have Sottopelle insertion, if a good candidate. Patient verbalizes understanding to plan of care. 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 Caution on side effects including palpitations, agitation, etc. that can occur and should be reported. TFT's with next labs in 3 months. Can check as early as 4 weeks if desired. Hyperpigmentation Plan to discontinue progesterone since she has had a hysterectomy and is still struggling with sleep to see if her chest redness improves any. Then can consider lower dosing of estradiol if ongoing. Subclinical hypothyroidism Tolerating ar mour thyroid. Plan to increase dose to 60mg/day. Recheck TFT's in 6-8 weeks. Cautioned on side effects to report of increasing dose of therapy including palpitations, aggitation, and dizziness Unspecified menopausal and perimenopausal disorder SottoPelle was inserted today per patient desires and medical recommendation. After care and follow up instructions were reviewed with patient in great detail. Patient states that all questions have been answered to her satisfaction. She c/o poor sleep and hot flashes. Her numbers look very good today. Hx hysterectomy so has not been rx'd or need progesterone for endometrial protection. However it can have some benefit for sleep and VM sx so will send in rx for her to try this interval. Also discussed mammo. PCP recommended q 2 years; we prefer annual >50 and on HRT. She will have mammo prior to next insert at [facility] and have report faxed to us. Urinary incontinence, unspecified type S he has tried Kegels over the past 1 year with no change in urinary incontinence. [place] urodynamics and then bladder consult with UROGYN. Unspecified menopausal and perimenopausal disorder SottoPelle was inserted today per patient desires and medical recommendation. After care and follow up instructions were reviewed with patient in great detail. Patient states that all questions have been answered to her satisfaction. Subclinical hypothyroidism Free T3 lab t kassidy Desires [place] thyroid for management to help with fatigue and sleep difficulties. Plan to start 15mg PO daily, cautioned on common side effects to report with recheck of TFT's in 6 weeks to determine if dose can be increased and to see how she is feeling Unspecified menopausal and perimenopausal disorder SottoPelle was inserted today per patient desires and medical recommendation. After care and follow up instructions were reviewed with patient in great detail. Patient states that all questions have been answered to her satisfaction. Mammo at [facility] next week will see me in [place] to discuss wanting to 'feel better.' Routine gynecological examination -Joe nue with regular exercise and healthy diet including high calcium foods for bone health -No furhter Pap screen with history of hysterectomy for benign reasons -Breast awareness and annual mammograms recommended -Colonoscopy ordered through PCP -Bone density completed 2019, results on in chart, pt. believes no concerns -HM labs through PCP Unspecified menopausal and perimenopausal disorder SottoPelle was inserted today per patient desires and medical recommendation. After care and follow up instructions were reviewed with patient in great detail. Patient states that all questions have been answered to her satisfaction. Unspecified menopausal and perimenopausal disorder SottoPelle was inserted today per patient desires and medical recommendation. After care and follow up instructions were reviewed with patient in great detail. Patient states that all questions have been answered to her satisfaction. Chronic fatigue Vitamin D level in was 58.9 last vit. B12 level in the 900's in 2018 TSH slowing increasing since 2019, labs reviewed on phone from outside provider Unspecified menopausal and perimenopausal disorder SottoPelle was inserted today per patient desires and medical recommendation. After care and follow up instructions were reviewed with patient in great detail. Patient states that all questions have been answered to her satisfaction. Unspecified menopausal and perimenopausal disorder Hormone pellets inserted today per patient desires and medical recommendation. After care and follow up instructions were reviewed with patient in great detail. Patient states that all questions have been answered to her satisfaction. Unspecified menopausal and perimenopausal disorder SottoPelle was inserted today per patient desires and medical recommendation. After care and follow up instructions were reviewed with patient in great detail. Patient states that all questions have been answered to her satisfaction. Unspecified menopausal and perimenopausal disorder SottoPelle was inserted today per patient desires and medical recommendation. After care and follow up instructions were reviewed with patient in great detail. Patient states that all questions have been answered to her satisfaction. Pending Tests Test Name Order Date MAMMOGRAM, SCREENING 2022-08-23 POTASSIUM 2020-05-04 ESTRADIOL 2020-05-04 FSH 2020-05-04 TESTOSTERONE, TOTAL, LC/MS/MS 2020-05-04 Next Appt Details Provider Name:Dayne Edgardo, 2023-01-02 04:00:00 PM, [id number], [place], [address], Provider Name:Dayne Reynoso, 2023-01-10 02:45:00 PM, [id number] [place] [place], [address], Insurance Providers Payer Name Payer Address Payer Phone Insured Name Patient Relationship to Insured Coverage Start Date Coverage End Date Subscriber Number Group Number [employer] [address] [facility] [id number] Kay Stroud Self - patient is the insured [id number]
--- NOTE | 2022-12-18 08:35 | W.ANESCHARGE ---
Anesthesia Charges Start Date/Time Anesthesia Start Date: 12/18/22 Anesthesia Start Time: 08:30 Stop Date/Time Anesthesia Stop Date: 12/18/22 Anesthesia Stop Time: 08:45
--- NOTE | 2022-12-18 08:43 | W.ANESCHARGE ---
Anesthesia Charges Start Date/Time Anesthesia Start Date: 12/18/22 Anesthesia Start Time: 08:30 Stop Date/Time Anesthesia Stop Date: 12/18/22 Anesthesia Stop Time: 08:45
== END 2022-12-18 07:51 | disposition home or self-care (01) ==
PROVIDERS: PCP Family Medicine; Visit Provider Surgery
DX: R13.10 Dysphagia, unspecified (principal); Z03.821 Encounter for observation for suspected ingested foreign body ruled out; Z98.84 Bariatric surgery status
CPT/HCPCS: 00731; 43239; 88305; J3490